=== PATIENT | female | born 2000 | race Caucasian/White ===

== ENCOUNTER 2020-01-22 09:02 | Outpatient (CLI) | payer OTHER, SELFPAY ==
--- NOTE | ~2020-01-22 | XR_ITS ---
XR abdomen/kub 1V 01/22/2020 09:34 INDICATION: Left hydronephrosis. TECHNIQUE: KUB COMPARISON: None FINDINGS: Bowel gas pattern is normal. There is no evidence of free air, mass, organomegaly, ascites or obstruction. No abnormal calculi are seen. The bones appear intact. IMPRESSION: 1: No acute abdominal abnormality identified. Reviewed, dictated and finalized at location A.
--- NOTE | ~2020-01-22 | CT_ITS ---
EXAMINATION: CT abdomen pelvis wo/w con DATE: 01/22/2020 11:00 INDICATION: Left hydronephrosis. TECHNIQUE: Computed tomography (CT) of the abdomen and pelvis was performed without and with intraven ous contrast using a total of 130 mL Omnipaque-350 intravenous contrast with a double-bolus technique for simultaneous opacification of the renal parenchyma and renal collecting system. Automated exposu re control and iterative reconstruction technique were employed. The dose-length product was 1003.89 mGy-cm. COMPARISON: None FINDINGS: The visualized portions of the lung bases are clear without pneumonia or pleural effusion. The heart size is normal. No pericardial effusion. The liver, gallbladder, spleen, pancreas, adrenal glands, an d right kidney are normal. The right ureter is well opacified and is normal. There is moderate left h ydronephrosis with transition point at the ureteropelvic junction. The left ureter is not well-opacif ied. There is no urolithiasis. There are no dilated loops of bowel. There is a small volume of pelvic ascites, likely physiologic. There are no pathologically enlarged lymph nodes. The bones are unremar kable. IMPRESSION: 1. Moderate left hydronephrosis with transition point at the ureteropelvic junction. Reviewed, dictated and finalized at location A. IMPRESSION: 1. Moderate left hydronephrosis with transition point at the ureteropelvic junc tion.
--- NOTE | ~2020-01-22 | NM_ITS ---
EXAMINATION: JUSTIN mcdaniel renal scan DATE: 01/22/2020 11:57 INDICATION: Left hydronephrosis. TECHNIQUE: 8 mCi Tc-99m MAG3 was administered IV. 40 mg furosemide was administered IV immediately a fterward. The patient was scanned in the supine position. A posterior abdominal radionuclide angiogra m was obtained. A subsequent time course of static images of the kidneys, ureters, and bladder was ob tained. COMPARISON: CT abdomen and pelvis 01/22/2020 FINDINGS: The posterior abdominal radionuclide angiogram and sequential static images show normal siz e, position, and morphology of the kidneys. Peak renal parenchymal uptake was 2 min in right kidney a nd left min in left kidney (normal peak 3-5 minutes). The relative early renal uptake was 47% on the right and 53% on the left (<40% is abnormal). No abnormalities of the ureters or bladder are seen. T1/2 for clearance of activity from the right kidney and proximal collecting system was 7 minutes. T1/2 for clearance of activity from the left kidney and proximal collecting system was 5 minutes. Notes on interpretation: T1/2 <10 minutes is normal, 10-15 minutes is low grade obstruction of questi onable clinical significance, 15-20 minutes is partial obstruction that is likely clinically signific ant, >20 minutes is high grade obstruction. Note that false positives may be seen with supine positio jatin, dehydration, severely dilated nonobstructed kidney, atonic collecting system, poor renal functi on, and chronic furosemide use. IMPRESSION: 1. Symmetric kidney function. 2. No delay in contrast clearance from either kidney to suggest fixed obstruction. Reviewed, dictated and finalized at location A. IMPRESSION: 1. Symmetric kidney function. 2. No delay in contrast clearance from either kidney to suggest fixed obstruct ion.
== END 2020-01-22 09:03 | disposition home or self-care (01) ==
PROVIDERS: PCP Chiropractor; Visit Provider Urology
DX: N13.30 Unspecified hydronephrosis (principal)
CPT/HCPCS: 74018; 74178; 78708; A9562; J1940; Q9967

== ENCOUNTER 2022-02-24 07:53 | Outpatient (CLI) | payer OTHER, SELFPAY ==
--- NOTE | ~2022-02-24 | NM_ITS ---
EXAMINATION: JUSTIN mcdaniel renal scan DATE: 02/24/2022 09:26 INDICATION: UPJ obstruction TECHNIQUE: 7.6 mCi Tc-99m MAG3 was administered IV. 40 mg furosemide was administered IV immediately afterward. The patient was scanned in the supine position. A posterior abdominal radionuclide angiog ky was obtained. A subsequent time course of static images of the kidneys, ureters, and bladder was obtained. COMPARISON: Renal scan dated 01/22/2020 FINDINGS: The posterior abdominal radionuclide angiogram and sequential static images show normal size, positio n, and morphology of the kidneys. Peak renal parenchymal uptake was 3.5 min in left kidney and 2.5 mi n in right kidney (normal peak 3-5 minutes). The relative early renal uptake was 40% on the left and 60% on the right (<40% is abnormal). No abnormalities of the ureters or bladder are seen. T1/2 for clearance of activity from the left kidney and proximal collecting system was 7 minutes. T1/2 for clearance of activity from the right kidney and proximal collecting system was 7 minutes. Notes on interpretation: T1/2 <10 minutes is normal, 10-15 minutes is low grade obstruction of questi onable clinical significance, 15-20 minutes is partial obstruction that is likely clinically signific ant, >20 minutes is high grade obstruction. Note that false positives may be seen with supine positio jatin, dehydration, severely dilated nonobstructed kidney, atonic collecting system, poor renal functi on, and chronic furosemide use. IMPRESSION: 1. Asymmetric decreased function of the left kidney which now contributes only 40% to total renal fu nction versus previously noted contributing 53% which is of indeterminate etiology 2. No delay in contrast clearance from either kidney to suggest fixed obstruction. Reviewed, dictated and finalized at location A. IMPRESSION: 1. Asymmetric decreased function of the left kidney which now contributes only 40% to total renal function versus previously noted contributing 53% which is of indeterminate etiology 2. No delay in contrast clearance from either kidney to suggest fixed obstruct ion.
== END 2022-02-24 07:54 | disposition home or self-care (01) ==
LOC: ANHIMG 07:56
PROVIDERS: PCP Chiropractor
DX: N13.5 Crossing vessel and stricture of ureter without hydronephrosis (principal)
CPT/HCPCS: 78708; A9562